=== PATIENT | female | born 1995 | race Caucasian/White ===

== ENCOUNTER 2019-07-16 06:00 | Inpatient (IN) ==
[2019-07-16] MEDS ORDERED: Famotidine 20 MG/2 ML VIAL IVP PRN (10:35)
[2019-07-16] MEDS ORDERED: Ondansetron 4 MG/2 ML VIAL IVP PRN (10:35)
[2019-07-16] MEDS ORDERED: Naloxone 0.4 MG/ML INJ IVP PRN (10:35)
[2019-07-16] MEDS ORDERED: Metoclopramide 10 MG/2 ML VIAL IVP PRN (10:35)
[2019-07-16] MEDS ORDERED: *HR* Nalbuphine 10 MG/ML AMPUL IVP PRN (10:35)
[2019-07-16] MEDS ORDERED: Lidocaine 1% 20 ML MDV ID PRN (10:35)
[2019-07-16] MEDS ORDERED: Oxytocin 20 units/ LR 1000 mL 20 UNIT/1,000 ML BAG IVC SCH (10:45)
[2019-07-16] MEDS ORDERED: Epidural Premix (fent/bupiv) 110 ML EP SCH (11:15)
[2019-07-16 11:44] LABS: Basophils % 0.4 %; Eosinophils # 0.3 K/mcL (0.0-0.6); Eosinophils % 2.6 %; Hematocrit 35.6 % (35.3-44.9); Hemoglobin 11.1 g/dL (11.5-15.4); Immature Granulocytes % 0.4 % (0-4); Lymphocytes # 1.6 K/mcL (0.6-4.6); Lymphocytes % 14.5 %; Mean Corpuscular HGB Conc 31.2 g/dL (31.6-35.5); Mean Corpuscular Hemoglobin 24.1 pg (28.0-33.3); Mean Corpuscular Volume 77.4 fL (83.0-100.0); Monocytes # 0.4 K/mcL (0.0-1.3); Monocytes % 3.2 %; Neutrophils # 8.7 K/mcL (1.6-8.9); Platelet Count 350 K/mcL (140-400); Red Cell Distribution Width 16.6 % (11.5-14.5); Segmented Neutrophils % 78.9 %
[2019-07-16 11:50] LABS: Amphetamine Screen,Urine Negative ng/mL (Cutoff=1000); Barbiturate Screen,Urine Negative ng/mL (Cutoff=200); Benzodiazepines Screen,Urine Negative ng/mL (Cutoff=200); Cannabinoid Screen,Urine Negative ng/mL (Cutoff = 50); Cocaine Screen,Urine Negative ng/mL (Cutoff= 300); Opiate Screen,Urine Negative ng/mL (Cutoff=300); Phencyclidine Screen,Urine Negative ng/mL (Cutoff=25)
[2019-07-16] MEDS: Ringers Solution, Lactated 1,000 ML IVC SCH ×2 (12:36→20:36)
[2019-07-17] MEDS ORDERED: Bupivacaine-MPF 0.25% 10 ML VIAL ONE (06:53)
[2019-07-17] MEDS ORDERED: miSOPROStoL 100 MCG TABLET RC STA (15:45)
[2019-07-17] MEDS ORDERED: Methylergonovine 0.2 MG/ML AMPUL IM ONE ×2 (15:45→16:49)
[2019-07-17] MEDS ORDERED: miSOPROStoL 100 MCG TABLET PO ONE (16:49)
[2019-07-17] MEDS ORDERED: Acetaminophen 325 MG TABLET PO PRN (18:10)
[2019-07-17] MEDS ORDERED: Measles/Mumps/Rubella Vacc 0.5 ML VIAL SQ PRN (18:10)
[2019-07-17] MEDS ORDERED: Oxytocin 20 units/ LR 1000 mL 20 UNIT/1,000 ML BAG IVC SCH (18:10)
[2019-07-17] MEDS ORDERED: Lanolin 7 G OINT...G. TP PRN (18:10)
[2019-07-17] MEDS: Ibuprofen 600 MG TABLET PO PRN (19:35)
[2019-07-17] MEDS ORDERED: Budesonide/Formoterol 160/4.5 1 PUFF INH IH SCH (22:00)
[2019-07-18 07:59] LABS: Basophils % 0.3 %; Eosinophils # 0.1 K/mcL (0.0-0.6); Eosinophils % 0.8 %; Hematocrit 27.9 % (35.3-44.9); Immature Granulocytes % 0.5 % (0-4); Mean Corpuscular HGB Conc 31.9 g/dL (31.6-35.5); Mean Corpuscular Hemoglobin 24.8 pg (28.0-33.3); Mean Corpuscular Volume 77.7 fL (83.0-100.0); Mean Platelet Volume 9.3 fL (9.4-12.4); Monocytes # 0.6 K/mcL (0.0-1.3); Monocytes % 4.4 %; Neutrophils # 10.7 K/mcL (1.6-8.9); Platelet Count 328 K/mcL (140-400); Red Blood Count 3.59 M/mcL (3.82-4.97); Red Cell Distribution Width 16.8 % (11.5-14.5); White Blood Count 13.5 K/mcL (4.3-11.1)
[2019-07-18 08:00] LABS: Hemoglobin 8.9 g/dL (11.5-15.4)
[2019-07-18] MEDS: Ibuprofen 600 MG TABLET PO PRN (08:48)
[2019-07-18] MEDS ORDERED: Prenatal Vit/FA 1 EACH TABLET PO SCH (09:00)
[2019-07-18 17:23] VITALS: BP 142/74
== END 2019-07-18 16:50 | disposition home or self-care (01) | DRG 560 ==
LOC: 1NENULAB 10:18 → 1NENUOBS 07-17 18:10
PROVIDERS: ADMIT Student in an Organized Health Care Education/Training Program; ATTEND Student in an Organized Health Care Education/Training Program

== ENCOUNTER 2021-07-09 15:18 | Inpatient (IN) ==
[2021-07-09] MEDS ORDERED: Metoclopramide 10 MG/2 ML VIAL IVP PRN (16:38)
[2021-07-09] MEDS ORDERED: Naloxone 0.4 MG/ML INJ IVP PRN (16:38)
[2021-07-09] MEDS ORDERED: Famotidine 20 MG/2 ML VIAL IVP PRN (16:38)
[2021-07-09] MEDS ORDERED: Oxytocin 20 units/ LR 1000 mL 20 UNIT/1,000 ML BAG IVC SCH (16:45)
[2021-07-09] MEDS ORDERED: miSOPROStoL 25 MCG TABLET PO PRN (17:11)
[2021-07-09] MEDS ORDERED: Penicillin G Potassium 5,000,000 UNIT in 0.9 % Sodium Chloride Mini Bag 100 ML IVPB ONE (17:11)
[2021-07-09] MEDS: Ringers Solution, Lactated 1,000 ML IVC SCH (18:07)
[2021-07-09 18:24] LABS: Basophils % 0.3 %; Eosinophils # 0.2 K/mcL (0.0-0.6); Eosinophils % 1.3 %; Hemoglobin 11.8 g/dL (11.5-15.4); Immature Granulocytes % 0.5 % (0-4); Lymphocytes # 2.2 K/mcL (0.6-4.6); Lymphocytes % 19.3 %; Mean Corpuscular HGB Conc 31.9 g/dL (31.6-35.5); Mean Corpuscular Hemoglobin 24.2 pg (28.0-33.3); Mean Corpuscular Volume 75.8 fL (83.0-100.0); Mean Platelet Volume 9.2 fL (9.4-12.4); Monocytes # 0.4 K/mcL (0.0-1.3); Monocytes % 3.3 %; Neutrophils # 8.7 K/mcL (1.6-8.9); Platelet Count 407 K/mcL (140-400); Red Blood Count 4.88 M/mcL (3.82-4.97); Red Cell Distribution Width 17.5 % (11.5-14.5); Segmented Neutrophils % 75.3 %; White Blood Count 11.5 K/mcL (4.3-11.1)
[2021-07-09 18:32] LABS: Amphetamine Screen,Urine Negative ng/mL (Cutoff=1000); Barbiturate Screen,Urine Negative ng/mL (Cutoff=200); Benzodiazepines Screen,Urine Negative ng/mL (Cutoff=200); Cannabinoid Screen,Urine Negative ng/mL (Cutoff = 50); Cocaine Screen,Urine Negative ng/mL (Cutoff= 300); Opiate Screen,Urine Negative ng/mL (Cutoff=300); Phencyclidine Screen,Urine Negative ng/mL (Cutoff=25)
[2021-07-09 19:01] LABS: Influenza A PCR Negative (Negative); Influenza B PCR Negative (Negative); Resp. Syncytial Virus PCR Negative (Negative); SARS-CoV-2 by PCR (In House) Negative (Negative)
[2021-07-09] MEDS ORDERED: Epidural Premix (fent/bupiv) 110 ML EP SCH (19:15)
[2021-07-09] MEDS ORDERED: EPHEDrine 50 MG/ML VIAL IVP PRN (19:15)
[2021-07-10] MEDS: Penicillin G Potassium 2,500,000 UNIT/105 ML MLS IVPB SCH ×2 (12:48→17:11)
[2021-07-10] MEDS: Ringers Solution, Lactated 1,000 ML IVC SCH (12:48)
[2021-07-10] MEDS ORDERED: *HR* FentaNYL (PF) 100 MCG/2 ML VIAL ONE (16:31)
[2021-07-10] MEDS ORDERED: Lidocaine/EPI 1:200k 2% PF 20 ML VIAL ONE (16:31)
[2021-07-10] MEDS ORDERED: *HR* Nalbuphine 10 MG/ML AMPUL IV PRN (18:09)
[2021-07-10] MEDS ORDERED: Calcium Gluconate 1,000 MG/10 ML VIAL IVP PRN ×2 (21:32→21:34)
[2021-07-10] MEDS ORDERED: Magnesium Sulf 20 gm/SW 500mL 20 GM/500 ML IV.SOLN IVC SCH (21:45)
[2021-07-10 23:31] LABS: Alanine Aminotransferase 9 Units/L (7-52); Aspartate Amino Transferase 12 Units/L (13-39); BUN/Creatinine Ratio 11 (6-26); Blood Urea Nitrogen 6 mg/dL (6-20); Lactate Dehydrogenase 97 Units/L (140-271); Uric Acid 4.8 mg/dL (2.3-7.6); eGFR For African Americans > 60 (> 60); eGFR For Non-African Americans > 60 (> 60)
[2021-07-10] MEDS ORDERED: Ondansetron ODT 4 MG TAB.RAPDIS SL PRN (23:49)
[2021-07-10] MEDS ORDERED: Oxytocin 20 units/ LR 1000 mL 20 UNIT/1,000 ML BAG IVC ONE (23:49)
[2021-07-10] MEDS ORDERED: Lanolin 7 G OINT...G. TP PRN (23:49)
[2021-07-10] MEDS ORDERED: Oxytocin 20 units/ LR 1000 mL 20 UNIT/1,000 ML BAG IVC SCH (23:49)
[2021-07-10] MEDS ORDERED: Benzocaine/Menthol 56 GM AEROSOL SPRAY TP PRN (23:49)
[2021-07-11] MEDS: Ibuprofen 600 MG TABLET PO SCH ×3 (01:35→17:36)
[2021-07-11] MEDS: Acetaminophen 325 MG TABLET PO SCH ×3 (01:36→17:36)
[2021-07-11] MEDS: Budesonide/Formoterol 160/4.5 1 PUFF INH IH SCH (07:58)
[2021-07-11] MEDS: Prenatal Vit/FA 1 EACH TABLET PO SCH (08:49)
[2021-07-11] MEDS ORDERED: Magnesium Sulf 20 gm/SW 500mL 20 GM/500 ML IV.SOLN IVC SCH (10:30)
[2021-07-11 21:47] VITALS: TEMP 99.2
[2021-07-12] MEDS: Ibuprofen 600 MG TABLET PO SCH ×2 (01:20→09:01)
[2021-07-12] MEDS: Acetaminophen 325 MG TABLET PO SCH ×2 (01:21→09:00)
[2021-07-12] MEDS: Budesonide/Formoterol 160/4.5 1 PUFF INH IH SCH ×2 (07:56→08:29)
[2021-07-12 08:33] VITALS: BP 117/73; PULSE 80
[2021-07-12] MEDS: Prenatal Vit/FA 1 EACH TABLET PO SCH (09:01)
[2021-07-12 10:41] VITALS: O2SAT 96
== END 2021-07-12 12:17 | disposition home or self-care (01) | DRG 560 ==
LOC: 1NENULAB 15:18 → 1NENUOBS 07-10 22:59
PROVIDERS: ADMIT Obstetrics & Gynecology; ATTEND Obstetrics & Gynecology